=== PATIENT | female | born 2000 | race Asian ===

== ENCOUNTER 2022-02-05 02:58 | Emergency (ER) | payer OTHER ==
[~2022-02-05] VITALS: Ht 167.6 cm; Wt 55.0 kg
[2022-02-05 03:08] VITALS: BP 130/82
[2022-02-05] MEDS ORDERED: IBUP1TAB69 PO (06:03)
[2022-02-05] MEDS ORDERED: CEPH500C2 MT (06:03)
== END 2022-02-05 06:29 | disposition home or self-care (01) ==
LOC: ER 02:58
DX: R00.2 Palpitations (principal); G47.00 Insomnia, unspecified
CPT/HCPCS: 93005; 99283